=== PATIENT | male | born 1940 | race Caucasian/White ===

== ENCOUNTER 2021-09-26 14:56 | Emergency (ER) | payer OTHER ==
[2021-09-26 15:36] LABS: HEMOGLOBIN 14.2 gm/dl (14.0-17.5); RED BLOOD COUNT 4.38 M/UL (4.20-5.50)
[2021-09-26 16:06] LABS: BUN/CREATININE RATIO 17 (0-10)
[2021-09-26] MEDS ORDERED: ZOFRAN 4 MG TAB4 MG PO (16:58)
== END 2021-09-26 17:21 | disposition home or self-care (01) ==
LOC: ER1 14:56
PROVIDERS: Physician Assistant
DX: U07.1 COVID-19 (principal); R42 Dizziness and giddiness
CPT/HCPCS: 80053; 82550; 82553; 83874; 84484; 85025; 93005; 99284

== ENCOUNTER → 2021-09-28 | Outpatient (CLI) | payer OTHER ==
[~2021-09-28] VITALS: Ht 182.9 cm; Wt 92.1 kg
[~2021-09-28] MED LIST: ZOFRAN 4 MG TAB4 MG PO
== END ==
LOC: EROP 11:52
DX: U07.1 COVID-19 (principal); Z23 Encounter for immunization
CPT/HCPCS: M0247; Q0247